=== PATIENT | male | born 1975 | race Caucasian/White ===

== ENCOUNTER 2019-02-15 11:40 | Emergency (ER) | payer BC ==
[2019-02-15] MEDS ORDERED: Albuterol/Ipratropium 3.0-0.5 MG/3 ML Neb Soln NEB ONE (11:47)
[2019-02-15 12:09] LABS: CHLORIDE,CL 103 mmol/L (98-107); SODIUM,NA 137 mmol/L (136-145)
[2019-02-15] MEDS ORDERED: methylPREDNISolone Sodium Succinate 125 MG/2 ML SDV IM ONE (12:39)
--- NOTE | 2019-02-15 12:46 | EDM.PDOC ---
ED HPI GENERAL MEDICAL PROBLEM - General Chief Complaint: Respiratory Problem Stated Complaint: SHORTNESS OF BREATHE Time Seen by Provider: 02/15/19 11:44 Source of Information: Reports: Patient, Family History Limitations: Reports: No Limitations - History of Present Illness INITIAL COMMENTS - FREE TEXT/NARRATIVE: 4 day history of URI complaints. Initially sore throat/runny nose. Sore throat has resolved. Cough has worsened. Today is wheezing, some SOB with activity. Has had similar reactions in past. No fevers/chills. No ear pain/vision change. Coughing up green/brown phlegm at times. No chest pain. No back pain. No nausea/emesis/bowel changes. No neuro changes/headache. History of high BP. Nonsmoker. Treatments SOCK EXAMINER: Reports: Other (see below) Other Treatments SOCK EXAMINER: nyquil flu and cold Left Lower Trunk Pain Score (Numeric/FACES): 4 - Related Data Allergies Allergy/AdvReac Type Severity Reaction Status Date / Time Penicillins Allergy Rash Verified 09/15/13 08:49 Home Meds: Home Meds Albuterol Sulfate 2.5 mg IH ASDIRECTED PRN #1 box 02/15/19 [Rx] Cyclobenzaprine [Flexeril] 10 mg PO TID PRN 02/15/19 [History] Lisinopril 10 mg PO DAILY 02/15/19 [History] Omeprazole 40 mg PO DAILY 02/15/19 [History] predniSONE 20 mg PO WITHBREAKFAST #5 tab 02/15/19 [Rx] Past Medical History Cardiovascular History: Reports: Hypertension Respiratory History: Reports: Bronchitis, Recurrent, Other (See Below) ( Reactive airway disease) Gastrointestinal History: Reports: GERD Genitourinary History: Reports: Other (See Below) Other Genitourinary History: h/o kidney stones Musculoskeletal History: Reports: Back Pain, Chronic Neurological History: Reports: Other (See Below) Other Neuro History: H/O febrile seizures as a child. - Past Surgical History Musculoskeletal Surgical History: Reports: Other (See Below) Other Musculoskeletal Surgeries/Procedures:: surgery to removal bone spur S4-5, fix rotated disc. Social & Family History - Tobacco Use Smoking Status *Q: Former Smoker Used Tobacco, but Quit: Yes Month/Year Tobacco Last Used: 1 ED ROS GENERAL - Review of Systems Review Of Systems: ROS reveals no pertinent complaints other than HPI. ED EXAM, GENERAL - Physical Exam Exam: See Below Exam Limited By: No Limitations General Appearance: Alert, WD/WN, No Apparent Distress Eye Exam: Bilateral Eye: EOMI, PERRL Ears: Normal External Exam Nose: No: Nasal Deformity, Nasal Swelling Throat/Mouth: Normal Lips, Normal Oropharynx, Normal Voice, No Airway Compromise Head: Atraumatic, Normocephalic Neck: Normal Inspection, Supple, Non-Tender, Full Range of Motion Respiratory/Chest: No Respiratory Distress, No Accessory Muscle Use, Chest Non- Tender, Wheezing (bilaterally). No: Retractions Cardiovascular: Regular Rate, Rhythm, No Murmur GI/Abdominal: Soft, Non-Tender (Male) Exam: Deferred Rectal (Males) Exam: Deferred Back Exam: No: CVA Tenderness (L), CVA Tenderness (R), Muscle Spasm, Paraspinal Tenderness, Vertebral Tenderness Extremities: Normal Inspection, Normal Capillary Refill Neurological: Alert, Oriented, Normal Cognition, Normal Gait Psychiatric: Normal Affect, Normal Mood Skin Exam: Warm, Dry, Intact, Normal Color Course - Vital Signs Last Recorded V/S: Last Vital Signs Temp 36.7 C 02/15/19 11:41 Pulse 84 02/15/19 11:52 Resp 18 02/15/19 11:52 BP 159/103 H 02/15/19 11:52 Pulse Ox 98 02/15/19 11:52 - Orders/Labs/Meds Orders: Active Orders 24 hr Category Date Time Status Communication Order [RC] ROUTINE Care 02/15/19 12:40 Ordered RT Aerosol Therapy [RC] ASDIRECTED Care 02/15/19 11:48 Active Chest 2V [CR] Stat Exams 02/15/19 11:44 Ordered Labs: Laboratory Tests 02/15/19 02/15/19 Range/Units 11:27 11:27 WBC 6.2 (4.0-10.2) K/uL RBC 5.29 (4.33-5.41) M/uL Hgb 16.7 (13.1-16.8) g/dL Hct 47.6 (39.0-49.0) % MCV 90.0 (84.0-98.0) fL MCH 31.6 (28.2-33.3) pg MCHC 35.1 (31.7-36.0) g/dL RDW 13.1 (11.2-14.1) % Plt Count 150 (150-350) K/uL Neut % (Auto) 43.2 L (45.0-80.0) % Lymph % (Auto) 34.2 (10.0-50.0) % [place] % (Auto) 18.6 H (2.0-14.0) % Eos % (Auto) 3.5 (0.0-5.0) % Baso % (Auto) 0.5 (0.0-2.0) % Neut # (Auto) 2.69 (1.40-7.00) K/uL Lymph # (Auto) 2.13 (0.50-3.50) K/uL [place] # (Auto) 1.16 H (0.00-1.00) K/uL Eos # (Auto) 0.22 (0.00-0.50) K/uL Baso # (Auto) 0.03 (0.00-0.20) K/uL Sodium 137 (136-145) mmol/L Potassium 4.3 (3.5-5.1) mmol/L Chloride 103 (98-107) mmol/L Carbon Dioxide 24.3 (21.0-32.0) mmol/L BUN 13 (7-18) mg/dL Creatinine 0.87 (0.51-1.17) mg/dL Est Cr Clr Drug Dosing 125.00 mL/min Estimated GFR (MDRD) > 60 mL/min Glucose 97 (74-106) mg/dL Calcium 9.0 (8.5-10.1) mg/dL Total Bilirubin 0.6 (0.2-1.0) mg/dL AST 39 H (15-37) U/L ALT 76 (12-78) U/L Alkaline Phosphatase 46 (46-116) IU/L Total Protein 7.8 (6.4-8.2) g/dL Albumin 3.6 (3.4-5.0) g/dL Meds: Medications Discontinued Medications Generic Name Dose Route Start Last Admin Trade Name Freq PRN Reason Stop Dose Admin Albuterol/Ipratropium 3 ml 02/15/19 11:47 02/15/19 12:02 Duoneb 3.0-0.5 Mg/3 Ml NEB 02/15/19 11:48 3 ml ONETIME ONE Administration Methylprednisolone Sodium Succinate 125 mg 02/15/19 12:39 02/15/19 12:43 Solu-Medrol IM 02/15/19 12:40 125 mg ONETIME ONE Administration - Radiology Interpretation Free Text/Narrative:: No focal consolidations noted on xray - Re-Assessments/Exams Free Text/Narrative Re-Assessment/Exam: 02/15/19 12:59 Suspect viral respiratory infection with acute exacerbation of reactive airway disease. DuoNeb given in ER. Significant improvement of wheezing, airflow improved. SoluMedrol IM given. Patient received nebulizer machine for use and is to give self Albuterol nebs Q6 hours for the next several days. May then transition to Q4-6 PRN. Antibiotics not indicated at this time. Precautions reviewed. To observe for changes. Follow up if worsening symptoms/ fever develop. Departure - Departure Time of Disposition: 13:00 Disposition: Home, Self-Care 01 Condition: Good Clinical Impression: Viral respiratory illness Reactive airway disease with acute exacerbation Qualifiers: Asthma severity: unspecified severity Asthma persistence: unspecified Qualified Code(s): J45.901 - Unspecified asthma with (acute) exacerbation - Discharge Information *PRESCRIPTION DRUG MONITORING PROGRAM REVIEWED*: Not Applicable *COPY OF PRESCRIPTION DRUG MONITORING REPORT IN PATIENT GINO: Not Applicable Prescriptions: Albuterol Sulfate 2.5 mg IH ASDIRECTED PRN #1 box PRN Reason: Shortness Of Breath predniSONE 20 mg PO WITHBREAKFAST #5 tab Instructions: Methylprednisolone Solution for Injection, Bronchospasm, Adult, [id number] Referrals: Ralf Javed MD [Primary Care Provider] - Forms: ED Department Discharge Additional Instructions: The Solu-medrol you were given should start to work within 24 hours. Use the Albuterol nebs every 6 hours to help with cough and wheezing. Follow up as needed if you get any worse/develop fevers. When you start to feel improved, decrease nebs to 2-3 times a day, then finally to every 4-6 hours as needed. Keep nebulizer around for future use since you have history of reactive airway disease triggered by viral infections/colds. - My Orders Last 24 Hours: My Active Orders 02/15/19 11:44 Chest 2V [CR] Stat 02/15/19 11:48 RT Aerosol Therapy [RC] ASDIRECTED 02/15/19 12:40 Communication Order [RC] ROUTINE - Assessment/Plan Last 24 Hours: My Active Orders 02/15/19 11:44 Chest 2V [CR] Stat 02/15/19 11:48 RT Aerosol Therapy [RC] ASDIRECTED 02/15/19 12:40 Communication Order [RC] ROUTINE
== END 2019-02-15 12:55 | disposition home or self-care (01) ==
LOC: LL.ED 11:40
DX: J45.901 Unspecified asthma with (acute) exacerbation (principal); B34.9 Viral infection, unspecified; I10 Essential (primary) hypertension; K21.9 Gastro-esophageal reflux disease without esophagitis; Z88.0 Allergy status to penicillin; Z79.899 Other long term (current) drug therapy; Z87.891 Personal history of nicotine dependence
CPT/HCPCS: 36415; 71046; 80053; 85025; 94640; 96372; 99283; J2930; J7620-GY

== ENCOUNTER 2024-02-01 07:06 | Emergency (ER) | payer BC ==
[2024-02-01] MEDS ORDERED: Sodium Chloride 0.9% 10 ML Syringe FLUSH PRN (07:16)
[2024-02-01 07:29] LABS: BASOPHILS ABSOLUTE AUTO 0.01 K/uL (0.00-0.20); BASOPHILS PERCENT AUTO 0.1 % (0.0-2.0); EOSINOPHILS ABSOLUTE AUTO 0.18 K/uL (0.00-0.50); EOSINOPHILS PERCENT AUTO 2.6 % (0.0-5.0); HEMATOCRIT 48.6 % (39.0-49.0); HEMOGLOBIN 16.9 g/dL (13.1-16.8); LYMPHOCYTES ABSOLUTE AUTO 2.98 K/uL (0.50-3.50); LYMPHOCYTES PERCENT AUTO 42.9 % (10.0-50.0); MEAN CORPUSCULAR HEMOGLOBIN 31.1 pg (28.2-33.3); MEAN CORPUSCULAR HGB CONC 34.8 g/dL (31.7-36.0); MEAN CORPUSCULAR VOLUME 89.3 fL (84.0-98.0); MONOCYTES ABSOLUTE AUTO 0.93 K/uL (0.00-1.00); MONOCYTES PERCENT AUTO 13.4 % (2.0-14.0); NEUTROPHILS ABSOLUTE AUTO 2.84 K/uL (1.40-7.00); PLATELET COUNT,PLT 152 K/uL (150-350); RED BLOOD CELL COUNT 5.44 M/uL (4.33-5.41); RED CELL DISTRIBUTION WIDTH 13.3 % (11.2-14.1); WHITE BLOOD CELL COUNT,WBC 6.9 K/uL (4.0-10.2)
[2024-02-01] MEDS: cloNIDine 0.1 MG Tab PO ONE (07:52)
[2024-02-01 07:59] LABS: ALBUMIN 3.9 g/dL (3.4-5.0); ANION GAP 9.1 meq/L (7-15); BILIRUBIN TOTAL 0.6 mg/dL (0.2-1.0); CALCIUM 9.2 mg/dL (8.5-10.1); CARBON DIOXIDE,CO2 28.9 mmol/L (21.0-32.0); CREATININE 0.92 mg/dL (0.51-1.17); EST CRCL DRUG DOSING (CG) 112.18 mL/min; MAGNESIUM 2.2 mg/dL (1.8-2.4); PROTEIN TOTAL,TP 8.1 g/dL (6.4-8.2)
[2024-02-01 08:11] LABS: INR 1.1 (0.9-1.1); PROTHROMBIN TIME 10.5 SEC (9.0-11.1)
[2024-02-01] MEDS: Hydrochlorothiazide 25 MG Tab PO ONE (08:55)
[2024-02-01] MEDS: Lisinopril 5 MG Tab PO ONE (08:55)
[2024-02-01] MEDS: NIFEdipine 10 MG Cap PO ONE (12:01)
== END 2024-02-01 12:38 | disposition home or self-care (01) ==
LOC: LL.ED 07:06
DX: I16.0 Hypertensive urgency (principal); K21.9 Gastro-esophageal reflux disease without esophagitis; I10 Essential (primary) hypertension; Z79.899 Other long term (current) drug therapy; Z88.0 Allergy status to penicillin
CPT/HCPCS: 36415; 80053; 83735; 84484; 85025; 85610; 93005; 93010; 99284; A9270-GY